=== PATIENT | male | born 2000 | race Two or more races ===

== ENCOUNTER 2023-09-06 13:37 | Emergency (ER) | payer OTHER, MEDICAID ==
[~2023-09-06] VITALS: Ht 177.8 cm; Wt 97.6 kg
[~2023-09-06 13:37] MED LIST: NAPR-746 PO
[2023-09-06 14:50] VITALS: BP 139/75; PULSE 95; RESP 16; TEMP 99.3; O2SAT 97
== END 2023-09-06 15:46 | disposition home or self-care (01) ==
LOC: ER 13:37
DX: S01.111D Laceration without foreign body of right eyelid and periocular area, subsequent encounter (principal); Z48.00 Encounter for change or removal of nonsurgical wound dressing; Z91.041 Radiographic dye allergy status; Z79.899 Other long term (current) drug therapy; X58.XXXD Exposure to other specified factors, subsequent encounter